=== PATIENT | female | born 1940 | race Caucasian/White ===

== ENCOUNTER 2016-07-02 11:50 | Emergency (ER) | payer OTHER ==
[~2016-07-02 11:50] MED LIST: ASPIRIN ADULT L81 MG PO; DICLOFENAC SODI75 MG; FISH OIL1000 M1 PO; GABAPENTIN300 MG PO; LEVAQUIN500 MG PO; LOPRESSOR100 M1 PO; LOSARTAN POTAS100 MG PO; METRONIDAZOLE500 MG PO; REVLIMID PO; ROBAXIN500 M1 PO; TUMS500 MG PO; ZYRTEC ALLERGY10 MG PO
--- NOTE | 2016-07-02 15:12 | DIAGNOSTIC IMAGING REPORT ---
PROCEDURE: CT ABD/PELVIS WITH CONTRAST INDICATION: Diarrhea and hematochezia. TECHNIQUE: 125 ml of Isovue 300 were injected intravenously and axial images were obtained of the entire abdomen and pelvis with sagittal and coronal reformations. COMPARISON: Compared to CT abdomen and pelvis on 08/28/2015. FINDINGS: ABDOMEN: Status post cholecystectomy (surgical clips). Liver, spleen, pancreas, and kidneys are normal. Moderate calcified atheromatous changes of the aorta. Bowel pattern is normal, including appendix. Moderate to marked degenerative changes of the lumbar spine. Mild parenchymal scarring at the lung bases. PELVIS: Mild sigmoid diverticulosis. Status post hysterectomy. Left ovary is atrophic. Right ovary not visualized. No evidence of free fluid. IMPRESSION: 1. Status post cholecystectomy and hysterectomy. 2. Mild sigmoid diverticulosis, but no evidence of diverticulitis. 3. Otherwise negative CT abdomen and pelvis. 4. Findings discussed with MARITZA Ryan. All CT scans at this facility use dose modulation, iterative reconstruction, and/or weight-based dosing when appropriate to reduce radiation dose to as low as reasonably achievable.
--- NOTE | 2016-07-02 15:30 | ED NURSING NOTES ---
Clinical Report - Nurses [facility] [place] [address] 07/02/2016 11:51 Patient: CONRADO SNOW TRIAGE Acuity: LEVEL 3. Chief Complaint: BLOODY STOOLS. Alert. No acute distress. SEPSIS SCREEN: Sepsis Screen. Negative (no infection suspected/documented). DANI COMA SCORE: [place] Coma Scale: 15- eyes open spontaneously (4); best verbal response- oriented x 4 (5); best motor response- obeys commands (6). --12:19 Caitlin Al R.N. 12:10 07/02/16. BP: 209/86. HR: 55. RR: 12. O2 saturation: 100%. Temp: 97.8 F (oral). Pain level now: 08/13. --12:19 Caitlin Al R.N. Weight: 92 kg stated. Height/Length: 69 inches Per Patient. BMI: 30. --12:15 Caitlin Al R.N. Medications Losartan Potassium Oral. Metoprolol Tartrate Oral. Multivitamins Oral. Revlimid Oral. --12:13 Caitlin Al R.N. Medication/allergy information source: the patient. --12:19 Caitlin Al R.N. Allergies Amoxicillin. Kiwi fruit. Sulfa Antibiotics. Tramadol. Vicodin. --12:11 Caitlin Al R.N. History Arrived by private vehicle. Historian: patient. Accompanied by daughter. Primary physician (Eunice). This started today. ( Pt reports she has had diarrhea for the last 3 days and noticed blood in her stool today.). PAST MEDICAL HX: The patient has had a hysterectomy. SOCIAL HX: Never smoker. Occasional alcohol use. No drug use. NUTRITIONAL RISK ASSESSMENT: The nutritional risk assessment revealed no deficiencies. LEARNING NEEDS ASSESSMENT: The learning needs assessment revealed no barriers. FALL RISK ASSESSMENT: Fall risk assessment completed. Risk factors identified include patient age greater than 65 years. FUNCTIONAL ASSESSMENT: Functional assessment performed: independent with the activities of daily living; wears glasses- this visual impairment is an ongoing problem. SKIN INTEGRITY ASSESSMENT: Skin integrity risk assessment completed. No skin integrity risk identified. --12:19 Caitlin Al R.N. PROBLEMS: Muscle Strain, Lower Extremity. Back Pain. Anemia. GI Bleeding. Dehydration. Cancer. Pharyngitis. Otitis Media. UTI - Urinary Tract Infection. Diarrhea. Myelodysplastic syndrome (clinical). Chest Pain. Spinal Injury. Fall. Sprain. Contusion. Hypertension. Spinal Stenosis. --12:13 Caitlin Al R.N. ADDITIONAL SURGERIES: Achilles tendons. Adenoidectomy. Breast Biopsy. Breast reducion. Cholecystectomy. Hysterectomy. Knee Prosthesis. Neck Surgery. Tonsillectomy. --12: Caitlin Al R.N. Assessment GENERAL / NEURO / PSYCH: Alert. Oriented X 4. Appears in no acute distress. Patient appears calm and cooperative. RESPIRATORY: Respirations not labored. CVS: Capillary refill less than 2 seconds. GI / : Abdomen nontender. SKIN: Mucous membranes are pink. Skin is warm and dry. --12:19 Caitlin Al R.N. Interventions ID band on patient. To treatment room. --12:19 Caitlin Al R.N. PHYSICAL ASSESSMENT 12:20 07/02/16. Ambulatory to room. GENERAL / NEURO / PSYCH: Alert. Oriented X 4. Appears in no acute distress. HEENT: Pupils equal, round and reactive to light. No facial asymmetry noted. Mucous membranes are pink. RESPIRATORY: Respirations not labored. CVS: Capillary refill less than 2 seconds. Pulses within normal limits. GI / : Abdomen soft and nontender. SKIN: Skin intact. Skin is warm and dry. Normal skin turgor. --12:20 Caitlin Al R.N. NURSING PROGRESS NOTES Patient gowned. Warming measures: blanket applied. Two patient identifiers checked. Call light placed in reach. Side rails up x 1. Bed placed in lowest position. Brakes of bed on. Patient ready for evaluation- chart flagged and ED physician and ALIGNER BARREL AND RECEIVER notified. --12: Caitlin Al R.N. 13:00 07/02/2016 Site #1 started via IV in the right antecubital space with an 20g angiocath, with aseptic technique and good blood return; one attempt. Blood drawn: rainbow set. Labeled in the presence of the patient and sent to the lab. --13:10 Caitlin Al R.N. 13:12 07/02/2016 Started bag #1 1000 mL IV Fluids IV NS (Saline); at 999 mL/hr over 1 hour(s) via site #1 via IV pump. Allergies verified and confirmed 5 rights. IV patency established. IV site checked: no pain, redness, or swelling. IV flushed thoroughly pre- and post-medication administration. --13:12 Caitlin Al R.N. 13:31 07/02/16. Assisted patient to bathroom and to ambulate; tolerated well. --13:31 Caitlin Al R.N. 13:39 07/02/2016 IV Fluids IV NS Discontinued: bag #1 infused. Total amount infused: 1000 mL. IV patency established. IV site checked: no pain, redness, or swelling. IV flushed thoroughly. --13:39 Caitlin Al R.N. 13:39 07/02/16. Checked patient name and birthdate: patient confirmed. Clean catch urine collected with return of yellow-colored clear urine; sample sent to lab for urinalysis. Specimen labeled in the presence of the patient. --13:39 Caitlin Al R.N. EKG time: (1407). EKG was ordered, performed by a tech and shown to the ED physician. --14:13 Faby Amador 14:13 07/02/2016 Started 20 meq of KCL (Potassium Chloride) IVPB in bag #1 100 mL; at 50 mL/hr over 2 hour(s) via site #1 via IV pump. Allergies verified and confirmed 5 rights. IV patency established. IV site checked: no pain, redness, or swelling. IV flushed thoroughly pre- and post-medication administration. --14:13 Caitlin Al R.N. Patient transported to [place] by stretcher with tech. --14:21 Caitlin Al R.N. 14:13 07/02/2016 Started bag #2 1000 mL IV Fluids IV NS (Saline); at 150 mL/hr over 2 hour(s) via site #1 via IV pump. Allergies verified and confirmed 5 rights. IV patency established. IV site checked: no pain, redness, or swelling. IV flushed thoroughly pre- and post-medication administration (bag 2 started with potassium). --15:24 Caitlin Al R.N. 14:44 07/02/2016 KCL (Potassium Chloride ER) PO 20 meq given. Allergies verified and confirmed 5 rights. --14:44 Caitlin Al R.N. 15:23 07/02/16. Reassessment after fluids administered and medication administered. She reports no complaints, she is calm and resting quietly and she has had no adverse reaction. RESPIRATORY: No respiratory distress. SKIN: Skin is warm and dry. Skin color within normal limits. --15:23 Caitlin Al R.N. 15:55 07/02/2016 KCL IVPB Discontinued: bag #1 infused upon discharge. Total amount infused: 100 mL. IV patency established. IV site checked: no pain, redness, or swelling. IV flushed thoroughly. --17:07 Caitlin Al R.N. 16:55 07/02/2016 IV Fluids IV NS Discontinued: bag #2 discontinued upon discharge. Total amount infused: 500 mL. IV patency established. IV site checked: no pain, redness, or swelling. IV flushed thoroughly. --17:08 Caitlin Al R.N. DISPOSITION / DISCHARGE Departure time: 16:00 Jul 02 2016. Condition at departure: improved and stable. No learning barriers present. Discharge instructions provided and reviewed with the patient. Reviewed medication(s) side effects, precautions and dosing information. Prescription(s) given to the patient. Patient verbalized understanding. Written instructions provided in [place]. The patient was discharged by the nurse practitioner. She was discharged home and accompanied by daughter. She left the Emergency Department ambulatory and via private vehicle. Driving (daughter). --17:06 Caitlin Al R.N. 17:05 07/02/16. BP: 180/84 (regular adult cuff) taken on the right arm, while sitting. Nurse practitioner notified. HR: 54. RR: 18. O2 saturation: 98% on room air. Temp: 97.9 F (oral). Pain level now: 0/10. --17:06 Caitlin Al R.N. 16:00 07/02/2016 Site #1 removed upon discharge. Catheter intact. Manual pressure and bandage applied. --17:07 Caitlin Al R.N. Locked/Released at 07/02/2016 17:09 by Caitlin Al R.N.
--- NOTE | 2016-07-02 15:30 | ED CLINICAL REPORT ---
Clinical Report - Physicians/Mid Levels [facility] [address] [place] [address] 07/02/2016 11:51 Patient: CONRADO SNOW Time Seen: 12:22; initial patient contact, initial documentation, patient care assumed. Arrived- By private vehicle. Historian- patient. HISTORY OF PRESENT ILLNESS Chief Complaint: DIARRHEA. This started about 3 days ago and is still present. No recent travel. No nausea, vomiting, constipation, flank pain or history of possible bad food exposure. No known contact with a sick individual or change in routine. She has had moderate diarrhea (about x5 episodes in 24 hrs). This has occurred several times. It has been bloody and has been associated with cramps. No watery, mucous containing or blood-tinged diarrhea or tenesmus. She has had moderately bloody stools. They have occurred only once and have been associated with bright red blood on the paper and in the bowl. No maroon or black colored stools or tarry stools. Has not recently been camping or on antibiotics. The illness is described as moderate. Similar symptoms previously: Frequently, milder. Recent medical care: Not recently seen/assessed. REVIEW OF SYSTEMS No fever, difficulty with urination, dark urine, dizziness or chest pain. No difficulty breathing or fainting episodes. All systems otherwise negative, except as recorded above. PAST HISTORY See nurses notes. PROBLEMS: Muscle Strain, Lower Extremity. Back Pain. Anemia. GI Bleeding. Dehydration. Cancer. Pharyngitis. Otitis Media. UTI - Urinary Tract Infection. Diarrhea. Myelodysplastic syndrome (clinical). Chest Pain. Spinal Injury. Fall. Sprain. Contusion. Hypertension. Spinal Stenosis. --12:13 Caitlin Al R.N. ADDITIONAL SURGERIES: Achilles tendons. Adenoidectomy. Breast Biopsy. Breast reducion. Cholecystectomy. Hysterectomy. Knee Prosthesis. Neck Surgery. Tonsillectomy. --12:13 Caitlin Al R.N. SOCIAL HISTORY Never smoker. Occasional alcohol use. No drug use. No recent travel. Is a local resident. FAMILY HISTORY Negative. ADDITIONAL NOTES The nursing notes have been reviewed with agreement regarding the chief complaint, HPI, ROS, PMH and patient medications and allergies. PHYSICAL EXAM Vital Signs: 07/02/2016 12:10 BP: 209/86. HR: 55. RR: 12. O2 saturation: 100%. Temp: 97.8 F. Pain level now: 610. Have been reviewed as abnormal and appear to be correct. Hypertensive. Bradycardic. Respiratory rate normal. Temperature normal. Oxygen saturation normal. Appearance: Alert. Oriented X3. No acute distress. Eyes: Pupils equal, round and reactive to light. Eyes normal inspection. ENT: Nose normal. Pharynx abnormal. Mildly dry mucous membranes present. Neck: Normal inspection. Neck supple. CVS: Normal heart rate and rhythm. Heart sounds normal. Pulses normal. Respiratory: No respiratory distress. Breath sounds normal. Abdomen: Soft and nontender. Bowel sounds normal. No organomegaly. No mass. Back: Normal inspection. Rectal: Rectal exam normal and nontender. Stool heme negative; hemoccult software quality tester check passed. (POC test reference range: negative). (evaluator - daughter in room). Skin: Skin warm and dry. Normal skin color. No rash. Normal skin turgor. Extremities: Extremities exhibit normal ROM. No lower extremity edema. Neuro: Oriented X 3. No motor deficit. No sensory deficit. LABS, X-RAYS, AND EKG EKG: EKG time: (1407). No acute process. No acute ischemia. Rate: 57. Narrow-complex bradycardia (ventricular rate 57). Occasional unifocal narrow-complex ectopic beats. Premature ventricular contractions. RBBB. Normal EKG. Changes present when compared to prior EKG. (pvc's not seen other prior ekg) No new ischemic changes present. The study has been interpreted contemporaneously by me (and dr scales). The EKG appears to be a good tracing. Interpretation time: 1407. Abdominal CT: . IMPRESSION: 1. Status post cholecystectomy and hysterectomy. 2. Mild sigmoid diverticulosis, but no evidence of diverticulitis. 3. Otherwise negative CT abdomen and pelvis. 4. Findings discussed with MARITZA Ryan. All CT scans at this facility use dose modulation, iterative reconstruction, and/or weight-based dosing when appropriate to reduce radiation dose to as low as reasonably achievable. Electronically Final signed by:Eric Roldan MD 07/02/2016 3:08:48 PM Technologist: ROSI. The study was interpreted by the radiologist and discussed with the radiologist. Interpretation time: 15:10. Laboratory Tests: UA-Culture if indicated: (JEANNETTE: 07/02/2016 13:35) ( [facility] [place] 13:54) Final results Test Result Flag Units (Reference) URINE COLOR YELLOW URINE APPEARANCE CLEAR URINE GLUCOSE NEGATIVE (NEGATIVE) URINE BILIRUBIN NEGATIVE (NEGATIVE) URINE KETONE NEGATIVE (NEGATIVE) URINE SPECIFIC GRAVITY <= 1.005 L (1.010-1.030) URINE PH 6.5 (5.0-8.0) URINE PROTEIN NEGATIVE (NEGATIVE) URINE UROBILINOGEN 0.2 EU/dL (0.2-1.0) URINE NITRITE NEGATIVE (NEGATIVE) URINE BLOOD TRACE-INTACT (NEGATIVE) URINE LEUK ESTERASE POSITIVE (NEGATIVE) URINE RBC NONE SEEN rbc/hpf (0-1) URINE WBC 3-5 wbc/hpf (0-1) URINE EPITHELIAL CELLS RARE EPI/hpf (0-5) URINE BACTERIA MODERATE (2+ TO 3+) (NONE SEEN) URINE COMMENT CULTURE INDICATED URINE CULTURES ARE SET-UP BASED ON THE FOLLOWING CRITERIA:POSITIVE NITRITEPOSITIVE LEUKOCYTE ESTERASEGREATER THAN 10 WHITE BLOOD CELLSMODERATE (2+) OR GREATER BACTERIA CBC w Diff: (JEANNETTE: 07/02/2016 13:00) ( [facility] 07/02/2016 13:34) Final results Test Result Flag Units (Reference) WHITE BLOOD COUNT 4.2 L K/uL (4.5-11.5) RED BLOOD COUNT 3.68 L M/uL (4.00-5.20) HEMOGLOBIN 12.1 gm/dL (12.0-16.0) HEMATOCRIT 35.7 L % (36.0-46.0) MEAN CELL VOLUME 97 fL (80-100) MEAN CORPUSCULAR HGB 33 pg (26-34) MEAN CORPUSCULAR HGB CONC 34 g/dL (31-37) RED CELL DISTRIBUTION WIDTH 14.5 % (11.6-14.8) PLATELET COUNT 160 K/uL (150-400) NEUTROPHIL % 40.7 L % (50-75) LYMPH % 43.7 H % (25-40) MONO % 9.6 % (3-14) EOSINOPHIL % 4.8 H % (0-4) BASOPHIL % 1.2 % (0-2) CMP: (JEANNETTE: 07/02/2016 13:00) ( MsgRcvd 07/02/2016 13:57) Final results Test Result Flag Units (Reference) GLUCOSE 87 mg/dL (70-110) BUN 10 mg/dL (7-18) CREATININE 1.0 mg/dL (0.6-1.3) Estimated GFR 57.45 mL/min Estimated GFR- >60 mL/min Note: Persistent reduction over 3 months in eGFR<60 mL/min/1.73 m2 defines CKD. Patients with eGFR values>=60 mL/min/1.73 m2 may also have CKD if evidence ofpersistent proteinuria. Additional information may be foundat www.kidney.org. SODIUM 143 mmol/L (136-145) POTASSIUM 2.9 *L mmol/L (3.5-5.1) CRITICAL RESULTS CALLEDCalled to [facility] 07/02/16 [id number] 2 patient identifiers used? YWas the result read back? Y CHLORIDE 106 mmol/L (98-107) CARBON DIOXIDE 31 mmol/L (21-32) CALCIUM 9.6 mg/dL (8.5-10.1) TOTAL PROTEIN 6.6 g/dL (6.4-8.2) ALBUMIN 3.0 L g/dL (3.3-5.0) BILIRUBIN, TOTAL 0.9 mg/dL (0.0-1.0) ALKALINE PHOSPHATASE 90 U/L (46-116) AST (SGOT) 31 U/L (15-37) ALT (SGPT) 37 U/L (12-78) LIPASE 83 U/L (73-393) AMYLASE 54 U/L (25-115) MAGNESIUM 1.6 L mg/dL (1.8-2.4) . PROGRESS AND PROCEDURES Course of Care: pt updated with lab results, need for k and ekg. Patient counseled in person regarding the patient's stable condition, test results and diagnosis. 15:13. Differential Diagnosis: I considered infectious etiology, inflammatory etiology, Crohn's disease, ulcerative colitis, diverticulitis, diabetes, carcinoid tumor, small bowel obstruction, colon cancer and irritable bowel syndrome as a possible cause of diarrhea in this patient. This is a partial list of diagnoses considered. Above considerations are based on history, physical exam and laboratory data. Differential diagnosis was discussed with patient and patient's family. Disposition: Discharged home in good and improved condition (15:30). Condition: good and stable. CLINICAL IMPRESSION Diarrhea Acute urinary tract infection with cystitis. No pyelonephritis or hematuria. Not associated with indwelling catheter or obstruction. Hypokalemia INSTRUCTIONS (over the counter diarrhea medicine as discussed). Warnings: GENERAL WARNINGS: Return or contact your physician immediately if your condition worsens or changes unexpectedly, if not improving as expected, or if other problems arise. SPECIFICALLY, return if you develop pain in the abdomen or pelvis, fever, the inability to keep fluids down, blood in vomitus, blood in diarrhea, fainting or lightheadedness. Prescription Medications: Cipro 500 mg: take 1 tab orally every 12 hours for 10 days. Dispense twenty (20). No refills. Substitution is permissible. Follow-up: Screening today revealed the patient's blood pressure to be in the hypertensive range. The patient should follow up with a primary care provider for blood pressure management. Understanding of the discharge instructions verbalized by patient and family. (Electronically signed by Ashley Vergara A.R.N.P. 07/02/2016 16:53)
--- NOTE | 2016-07-02 15:31 | ED ORDER SUMMARY ---
..... Patient: CONRADO NSOW OrderSheet [facility] VisitID: [id number] [place] [address] 75y, F Registration Date/Time: 07/02/2016 ORDER SHEET Weight: 92.0 kg (stated) Allergies: Amoxicillin, Kiwi fruit, Sulfa Antibiotics, Tramadol, Vicodin GENERAL ORDERS: CBC w Diff Urgent (12:44 07/02/2016 HBivens A.R.N.P.) (Ack 12:47 TBergley) (13:10 MWinterer R.N.) CMP Urgent (12:44 07/02/2016 HBivens A.R.N.P.) (Ack 12:47 TBergley) (13:10 MWinterer R.N.) UA-Culture if indicated Urgent (12:44 07/02/2016 HBivens A.R.N.P.) (Ack 12:47 TBergley) (13:38 MWinterer R.N.) Amylase Urgent (12:44 07/02/2016 HBivens A.R.N.P.) (Ack 12:47 TBergley) (13:10 MWinterer R.N.) Lipase Urgent (12:44 07/02/2016 HBivens A.R.N.P.) (Ack 12:47 TBergley) (13:10 MWinterer R.N.) EKG - ER Stat (13:57 07/02/2016 HBivens A.R.N.P.) (Ack 14:11 TBergley) (14:11 Shay) (14:11 MWinterer R.N.) CT Abd/Pel w Cont (No) (normal) Urgent (14:04 07/02/2016 HBivens A.R.N.P.) (Ack 14:11 TBergley) (14:37 Vanessa) MEDICATION ORDERS: KCl PO 20 meq (NOW) (14:10 07/02/2016 HBivens A.R.N.P.) (Ack 14:14 MWinterer R.N.) (14:44 MWinterer R.N.) IV FLUIDS: IV NS : initial bolus 1000 mL (1000 mL/hr), then none - (NOW) (12:43 07/02/2016 HBivens A.R.N.P.) (Ack 12:53 MWinterer R.N.) (13:12 MWinterer R.N.) IV Saline Lock (12:44 07/02/2016 HBivens A.R.N.P.) (Ack 12:53 MWinterer R.N.) (13:11 MWinterer R.N.) KCl IV 20 meq/100mL (Run no faster than 10 units/hr, HIGH ALERT MEDICATION, NOW, Run no faster than 10 mEq/hr) (13:57 07/02/2016 HBivens A.R.N.P.) (Ack 14:01 MWinterer R.N.) (14:13 MWinterer R.N.) ORDER SHEET NOTES: [Electronically signed by Ashley VergaraRGeetaN.PGeeta (16:53 07/02/2016)] [Electronically signed by Caitlin Al R.N. (17:09 07/02/2016)] [Electronically locked/signed by Caitlin Al R.N. (17:09 07/02/2016)]
--- NOTE | 2016-07-02 15:31 | ED ORDER SUMMARY ---
..... Patient: CONRADO SNOW OrderSheet [facility] VisitID: [id number] [place] [address] 75y, F Registration Date/Time: 07/02/2016 ORDER SHEET Weight: 92.0 kg (stated) Allergies: Amoxicillin, Kiwi fruit, Sulfa Antibiotics, Tramadol, Vicodin GENERAL ORDERS: CBC w Diff Urgent (12:44 07/02/2016 HBivens A.R.N.P.) (Ack 12:47 TBergley) (13:10 MWinterer R.N.) CMP Urgent (12:44 07/02/2016 HBivens A.R.N.P.) (Ack 12:47 TBergley) (13:10 MWinterer R.N.) UA-Culture if indicated Urgent (12:44 07/02/2016 HBivens A.R.N.P.) (Ack 12:47 TBergley) (13:38 MWinterer R.N.) Amylase Urgent (12:44 07/02/2016 HBivens A.R.N.P.) (Ack 12:47 TBergley) (13:10 MWinterer R.N.) Lipase Urgent (12:44 07/02/2016 HBivens A.R.N.P.) (Ack 12:47 TBergley) (13:10 MWinterer R.N.) EKG - ER Stat (13:57 07/02/2016 HBivens A.R.N.P.) (Ack 14:11 TBergley) (14:11 Shay) (14:11 MWinterer R.N.) CT Abd/Pel w Cont (No) (normal) Urgent (14:04 07/02/2016 HBivens A.R.N.P.) (Ack 14:11 TBergley) (14:37 Vanessa) MEDICATION ORDERS: KCl PO 20 meq (NOW) (14:10 07/02/2016 HBivens A.R.N.P.) (Ack 14:14 MWinterer R.N.) (14:44 MWinterer R.N.) IV FLUIDS: IV NS : initial bolus 1000 mL (1000 mL/hr), then none - (NOW) (12:43 07/02/2016 HBivens A.R.N.P.) (Ack 12:53 MWinterer R.N.) (13:12 MWinterer R.N.) IV Saline Lock (12:44 07/02/2016 HBivens A.R.N.P.) (Ack 12:53 MWinterer R.N.) (13:11 MWinterer R.N.) KCl IV 20 meq/100mL (Run no faster than 10 units/hr, HIGH ALERT MEDICATION, NOW, Run no faster than 10 mEq/hr) (13:57 07/02/2016 HBivens A.R.N.P.) (Ack 14:01 MWinterer R.N.) (14:13 MWinterer R.N.) ORDER SHEET NOTES: [Electronically signed by Ashley VergaraRGeetaN.PGeeta (16:53 07/02/2016)] [Electronically signed by Caitlin Al R.N. (17:09 07/02/2016)] [Electronically locked/signed by Caitlin Al R.N. (17:09 07/02/2016)]
--- NOTE | 2016-07-02 17:09 | ED MED RECONCILIATION SUMMARY ---
Patient: CONRADO SNOW Medication Reconciliation Report [facility] VisitID: [id number] [address] [place] [address] 75y, F Registration Date/Time: 07/02/2016 Weight: 92.0 kg Height/Length: 69 in. BMI: 30.0 ALLERGIES: Amoxicillin, Kiwi fruit, Sulfa Antibiotics, Tramadol, Vicodin The patient's Home Medications are listed below: THE FOLLOWING MEDICATIONS NEED TO BE RECONCILED: Losartan Potassium Oral Metoprolol Tartrate Oral Multivitamins Oral Revlimid Oral The source(s) of the original Home Medication information: patient The following Medications were given to the patient in the Emergency Department: IV NS IV Fluids bolus 0, then 999 mL/hr, administered: 07/02/2016 1:12:00 PM KCL [IVPB] IVPB bolus 0, then 20 meq 50 mL/hr, administered: 07/02/2016 2:13:00 PM KCL [PO] PO 20 meq, administered: 07/02/2016 2:44:00 PM IV NS IV Fluids bolus 0, then 150 mL/hr, administered: 07/02/2016 2:13:00 PM The following Medications were prescribed to the patient: Cipro 500 mg: take 1 tab orally every 12 hours for 10 days. Dispense twenty (20). No refills. Substitution is permissible. -- Ashley Vergara A.R.N.P.
--- NOTE | 2016-07-02 17:09 | ED MED RECONCILIATION SUMMARY ---
Patient: CONRADO SNOW Medication Reconciliation Report [facility] VisitID: [id number] [address] [place] [address] 75y, F Registration Date/Time: 07/02/2016 Weight: 92.0 kg Height/Length: 69 in. BMI: 30.0 ALLERGIES: Amoxicillin, Kiwi fruit, Sulfa Antibiotics, Tramadol, Vicodin The patient's Home Medications are listed below: THE FOLLOWING MEDICATIONS NEED TO BE RECONCILED: Losartan Potassium Oral Metoprolol Tartrate Oral Multivitamins Oral Revlimid Oral The source(s) of the original Home Medication information: patient The following Medications were given to the patient in the Emergency Department: IV NS IV Fluids bolus 0, then 999 mL/hr, administered: 07/02/2016 1:12:00 PM KCL [IVPB] IVPB bolus 0, then 20 meq 50 mL/hr, administered: 07/02/2016 2:13:00 PM KCL [PO] PO 20 meq, administered: 07/02/2016 2:44:00 PM IV NS IV Fluids bolus 0, then 150 mL/hr, administered: 07/02/2016 2:13:00 PM The following Medications were prescribed to the patient: Cipro 500 mg: take 1 tab orally every 12 hours for 10 days. Dispense twenty (20). No refills. Substitution is permissible. -- Ashley Vergara A.R.N.P.
--- NOTE | 2016-07-02 17:09 | ED DISCHARGE INSTRUCTIONS ---
Patient: CONRADO SNOW General Instructions [facility] VisitID: [id number] [place] [address] 75y, F Registration Date/Time: 07/02/2016 Diarrhea Acute urinary tract infection with cystitis. No pyelonephritis or hematuria. Not associated with indwelling catheter or obstruction. Hypokalemia INSTRUCTIONS (over the counter diarrhea medicine as discussed). Warnings: GENERAL WARNINGS: Return or contact your physician immediately if your condition worsens or changes unexpectedly, if not improving as expected, or if other problems arise. SPECIFICALLY, return if you develop pain in the abdomen or pelvis, fever, the inability to keep fluids down, blood in vomitus, blood in diarrhea, fainting or lightheadedness. Prescription Medications: Cipro 500 mg: take 1 tab orally every 12 hours for 10 days. Dispense twenty (20). No refills. Substitution is permissible. Follow-up: Screening today revealed the patient's blood pressure to be in the hypertensive range. The patient should follow up with a primary care provider for blood pressure management. Understanding of the discharge instructions verbalized by patient and family. ADDITIONAL INFORMATION Diarrhea, Uncertain Cause (Adult, Report Pending) Diarrhea has several possible causes. Commonstomach fluis caused by a virus. Food poisoning, bacteria or parasites are other causes for diarrhea. Only diarrhea caused by bacteria or parasites requires treatment with an antibiotic. Diarrhea from a virus or food poisoning improves with simple home treatment. A stool sample is needed to make the diagnosis of an infection with bacteria or parasites. Up to three stool specimens may be required to diagnose This may take up to two days to get the result. It may be necessary to wait until the stool test is complete to make the diagnosis and select the best antibiotic to prescribe. Home Care: If symptoms are severe, rest at home for the next 24 hours or until you are feeling better. You may use acetaminophen (Tylenol) or ibuprofen (Motrin, Advil) to control fever, unless another medicine was prescribed. [NOTE: If you have chronic liver or kidney disease or ever had a stomach ulcer or GI bleeding, talk with your doctor before using these medicines.] (Aspirin should never be used in anyone under 18 years of age who is ill with a fever. It may cause severe liver damage.) Avoid tobacco, caffeine and alcohol, which may worsen your symptoms. If anti-diarrhea medicine was prescribed, take this only as directed. Sometimes anti-diarrhea medicine can make your condition worse if the cause is an infectious diarrhea. Therefore, anti-diarrhea medicine should not be taken for this condition unless advised by your doctor. During The First 12-24 Hours follow the diet below: BEVERAGES: Sport drinks like Gatorade, soft drinks without caffeine; chely aracelis, mineral water (plain or flavored), decaffeinated tea and coffee. SOUPS: Clear broth, consomm and bouillon DESSERTS: Plain gelatin (Jell-O), popsicles and fruit juice bars. During The Next 24 Hours you may add the following to the above: Hot cereal, plain toast, bread, rolls, crackers Plain noodles, rice, mashed potatoes, chicken noodle or rice soup Unsweetened canned fruit (avoid pineapple), bananas Limit fat intake to less than 15 grams per day by avoiding margarine, butter, oils, mayonnaise, sauces, gravies, fried foods, peanut butter, meat, poultry and fish. Limit fiber; avoid raw or cooked vegetables, fresh fruits (except bananas) and bran cereals. Limit caffeine and chocolate. No spices or seasonings except salt. During The Next 24 Hours Gradually resume a normal diet, as you feel better and your symptoms lessen. Follow Up with your doctor or as advised if you are not improving over the next two days. If you were asked to bring a specimen from home, bring the sample on the day of collection. You may call in 2 days (or as directed) for the results. Get Prompt Medical Attention if any of the following occur: Increasing abdominal pain or constant lower right abdominal pain Continued vomiting (unable to keep liquids down) Frequent diarrhea (more than 5 times a day) Blood in vomit or stool (black or red color) Reduced oral intake Dark urine, reduced urine output Weakness, dizziness, fainting Drowsiness, confusion, stiff neck or seizure Fever of 100.4F (38C) oral or higher, not better with fever medication New rash Bladder Infection,Female (Adult) A bladder infection ("cystitis" or "UTI") usually causes a constant urge to urinate and a burning when passing urine. Urine may be cloudy, smelly or dark. There may be pain in the lower abdomen. A bladder infection occurs when bacteria from the vaginal area enter the bladder opening (urethra). This can occur from sexual intercourse, wearing tight clothing, dehydration and other factors. Home Care: Drink lots of fluids (at least 6-8 glasses a day, unless you must restrict fluids for other medical reasons). This will force the medicine into your urinary system and flush the bacteria out of your body. Avoid sexual intercourse until your symptoms are gone. Avoid caffeine, alcohol and spicy foods. These can irritate the bladder. A bladder infection is treated with antibiotics. You may also be given Pyridium (generic = phenazopyridine) to reduce the burning sensation. This medicine will cause your urine to become a bright orange color. The orange urine may stain clothing. You may wear a pad or panty-liner to protect clothing. Preventing Future Infections: Always wipe from front to back after a bowel movement. Keep the genital area clean and dry. Drink plenty of fluids each day to avoid dehydration. Both sexual partners should wash before intercourse. Urinate right after intercourse to flush out the bladder. Wear cotton underwear and cotton-lined panty hose; avoid tight-fitting pants. If you are on control pills and are having frequent bladder infections, discuss with your doctor. Follow Up: Return to this facility or see your doctor if ALL symptoms are not gone after three days of treatment. Get Prompt Medical Attention if any of the following occur: Fever of 100.4F (38C) or higher, or as directed by your healthcare provider No improvement by the third day of treatment Increasing back or abdominal pain Repeated vomiting; unable to keep medicine down Weakness, dizziness or fainting Vaginal discharge Pain, redness or swelling in the labia (outer vaginal area) Hypokalemia Hypokalemia means a low level of potassium in the blood. This most often occurs in patients who take diuretics (water pills). It can also occur due to severe vomiting or diarrhea. A mild case usually causes no symptoms. It is only found with blood testing. More severe potassium loss causes generalized weakness, muscle or abdominal cramping, heart palpitations (rapid or irregular heartbeats) and low blood pressure. Home Care: 1) Take any potassium supplements prescribed. 2) Eat foods rich in potassium. The highest amount is found in artichoke, baked potatoes, spinach, cantaloupe, honeydew melon, cod, halibut, salmon, and scallops. White, red, or kiser beans are also very good sources. A modest amount is found in orange juice, bananas, carrots, and tomato juice. 3) Certain types of diuretics (water pills), such as Lasix (furosemide), require that you take potassium supplements for as long as you take the diuretic pills. If you are taking a diuretic, discuss the need for potassium supplements with your doctor. Follow Up with your doctor for a repeat blood test within the next week or as advised by our staff. Get Prompt Medical Attention if any of the following occur: -- Increased weakness -- Feeling dizzy -- Irregular heartbeat, extra beats or very fast heart rate -- Fainting spell Ciprofloxacin Hydrochloride Oral tablet What is this medicine? CIPROFLOXACIN (sip afua FLOX a sin) is a quinolone antibiotic. It is used to treat certain kinds of bacterial infections. It will not work for colds, flu, or other viral infections. How should I use this medicine? Take this medicine by mouth with a glass of water. Follow the directions on the prescription label. Take your medicine at regular intervals. Do not take your medicine more often than directed. Take all of your medicine as directed even if you think your are better. Do not skip doses or stop your medicine early. You can take this medicine with food or on an empty stomach. It can be taken with a meal that contains dairy or calcium, but do not take it alone with a dairy product, like milk or yogurt or calcium-fortified juice. A special MedGuide will be given to you by the pharmacist with each prescription and refill. Be sure to read this information carefully each time. Talk to your cocoa press operator regarding the use of this medicine in children. Special care may be needed. What side effects may I notice from receiving this medicine? Side effects that you should report to your doctor or health landcare officer as soon as possible: - allergic reactions like skin rash, itching or hives, swelling of the face, lips, or tongue - breathing problems - confusion, nightmares or hallucinations - feeling faint or lightheaded, falls - irregular heartbeat - joint, muscle or tendon pain or swelling - pain or trouble passing urine -persistent headache with or without blurred vision - redness, blistering, peeling or loosening of the skin, including inside the mouth - seizure - unusual pain, numbness, tingling, or weakness Side effects that usually do not require medical attention (report to your doctor or health landcare officer if they continue or are bothersome): - diarrhea - nausea or stomach upset - white patches or sores in the mouth What may interact with this medicine? Do not take this medicine with any of the following medications: cisapride droperidol terfenadine tizanidine This medicine may also interact with the following medications: antacids caffeine cyclosporin didanosine (ddI) buffered tablets or powder medicines for diabetes medicines for inflammation like ibuprofen, naproxen methotrexate multivitamins omeprazole phenytoin probenecid sucralfate theophylline warfarin What if I miss a dose? If you miss a dose, take it as soon as you can. If it is almost time for your next dose, take only that dose. Do not take double or extra doses. Where should I keep my medicine? Keep out of the reach of children. Store at room temperature below 30 degrees C (86 degrees F). Keep container tightly closed. Throw away any unused medicine after the expiration date. What should I tell my health care provider before I take this medicine? They need to know if you have any of these conditions: -bone problems -cerebral disease -joint problems -irregular heartbeat -kidney disease -liver disease -myasthenia gravis -seizure disorder -tendon problems -an unusual or allergic reaction to ciprofloxacin, other antibiotics or medicines, foods, dyes, or preservatives - or trying to get -breast-feeding What should I watch for while using this medicine? Tell your doctor or health landcare officer if your symptoms do not improve. Do not treat diarrhea with over the counter products. Contact your doctor if you have diarrhea that lasts more than 2 days or if it is severe and watery. You may get drowsy or dizzy. Do not drive, use machinery, or do anything that needs mental alertness until you know how this medicine affects you. Do not stand or sit up quickly, especially if you are an older patient. This reduces the risk of dizzy or fainting spells. This medicine can make you more sensitive to the sun. Keep out of the sun. If you cannot avoid being in the sun, wear protective clothing and use sunscreen. Do not use sun lamps or tanning beds/booths. Avoid antacids, aluminum, calcium, iron, magnesium, and zinc products for 6 hours before and 2 hours after taking a dose of this medicine. You have been given the following additional information: Diarrhea, Unk Cause (Adult) Report Pendg Bladder Infection, Female (Adult) Hypokalemia Ciprofloxacin Hydrochloride Oral tablet (Electronically signed by Ashley Vergara A.R.N.P. 07/02/2016 16:53)
--- NOTE | 2016-07-02 17:09 | ED MAR SUMMARY ---
..... Medication Administration Record [facility] [address] [place] [address] Patient: CONRADO SNOW Visit ID: [id number] 75y, F Weight: 92.0 kg Height/Length: 69 in BMI: 30 ALLERGIES: Amoxicillin, Kiwi fruit, Sulfa Antibiotics, Tramadol, Vicodin Start 13:12 07/02/2016 Caitlin Al R.N., Stop 13:39 07/02/2016 Caitlin Al R.N. Medication Administered: IV NS (SALINE), Dose: IV Fluids over 1 hour(s), Rate: 999 mL/hr, Dispensed: 1000 mL bag, Site: #1 right AC. Medication Ordered: IV NS : initial bolus 1000 mL (1000 mL/hr), then none - (NOW). Start 14:13 07/02/2016 Caitlin Al R.N., Stop 16:55 07/02/2016 Caitlin Al R.N. Medication Administered: IV NS (SALINE), Dose: IV Fluids over 2 hour(s), Rate: 150 mL/hr, Dispensed: 1000 mL bag, Site: #1 right AC. Medication Ordered: IV NS : initial bolus 1000 mL (1000 mL/hr), then none - (NOW). Start 14:13 07/02/2016 Caitlin Al R.N., Stop 15:55 07/02/2016 Caitlin Al R.N. Medication Administered: KCL [IVPB] (POTASSIUM CHLORIDE), Dose: 20 meq IVPB over 2 hour(s), Rate: 50 mL/hr, Dispensed: 100 mL bag, Site: #1 right AC. Medication Ordered: KCl IV 20 meq/100mL (Run no faster than 10 units/hr, HIGH ALERT MEDICATION, NOW, Run no faster than 10 mEq/hr). Given 14:44 07/02/2016 Caitlin Al R.N. Medication Administered: KCL [PO] (POTASSIUM CHLORIDE ER), Dose: 20 meq PO. Medication Ordered: KCl PO 20 meq (NOW).
--- NOTE | 2016-07-02 17:09 | ED MAR SUMMARY ---
..... Medication Administration Record [facility] [address] [place] [address] Patient: CONRADO SNOW Visit ID: [id number] 75y, F Weight: 92.0 kg Height/Length: 69 in BMI: 30 ALLERGIES: Amoxicillin, Kiwi fruit, Sulfa Antibiotics, Tramadol, Vicodin Start 13:12 07/02/2016 Caitlin Al R.N., Stop 13:39 07/02/2016 Caitlin Al R.N. Medication Administered: IV NS (SALINE), Dose: IV Fluids over 1 hour(s), Rate: 999 mL/hr, Dispensed: 1000 mL bag, Site: #1 right AC. Medication Ordered: IV NS : initial bolus 1000 mL (1000 mL/hr), then none - (NOW). Start 14:13 07/02/2016 Caitlin Al R.N., Stop 16:55 07/02/2016 Caitlin Al R.N. Medication Administered: IV NS (SALINE), Dose: IV Fluids over 2 hour(s), Rate: 150 mL/hr, Dispensed: 1000 mL bag, Site: #1 right AC. Medication Ordered: IV NS : initial bolus 1000 mL (1000 mL/hr), then none - (NOW). Start 14:13 07/02/2016 Caitlin Al R.N., Stop 15:55 07/02/2016 Caitlin Al R.N. Medication Administered: KCL [IVPB] (POTASSIUM CHLORIDE), Dose: 20 meq IVPB over 2 hour(s), Rate: 50 mL/hr, Dispensed: 100 mL bag, Site: #1 right AC. Medication Ordered: KCl IV 20 meq/100mL (Run no faster than 10 units/hr, HIGH ALERT MEDICATION, NOW, Run no faster than 10 mEq/hr). Given 14:44 07/02/2016 Caitlin Al R.N. Medication Administered: KCL [PO] (POTASSIUM CHLORIDE ER), Dose: 20 meq PO. Medication Ordered: KCl PO 20 meq (NOW).
== END 2016-07-02 16:00 | disposition home or self-care (01) ==
LOC: ED SRH 11:50
DX: N30.00 Acute cystitis without hematuria (principal); R19.7 Diarrhea, unspecified; E87.6 Hypokalemia; I10 Essential (primary) hypertension; Z79.899 Other long term (current) drug therapy; Z88.2 Allergy status to sulfonamides; Z88.0 Allergy status to penicillin; Z88.5 Allergy status to narcotic agent; Z91.02 Food additives allergy status
CPT/HCPCS: 90004; 90100; 90148; 90469; 92235; 92530; 92720; 95059

== ENCOUNTER 2016-07-04 09:03 | Outpatient (CLI) | payer OTHER | END 2016-07-04 23:00 | LOC: LAB SRH 09:03 | DX: E87.6 Hypokalemia (principal); R19.7 Diarrhea, unspecified | CPT/HCPCS: 90074; 90100; 95059 ==